=== PATIENT | male | born 1945 | race Caucasian/White ===

== ENCOUNTER 2022-11-25 06:56 | Inpatient (IN) | payer OTHER ==
[~2022-11-25] VITALS: Ht 172.7 cm; Wt 137.0 kg
[2022-11-25 07:45] LABS: BASOPHILS ABSOLUTE AUTO 0.08 K/mm3 (0.00-0.23); BASOPHILS PERCENT AUTO 1 % (0-2); EOSINOPHILS ABSOLUTE AUTO 0.35 K/mm3 (0.00-0.68); EOSINOPHILS PERCENT AUTO 5 % (0-6); Hemoglobin 11.4 g/dL (13.5-17.5); IMMATURE GRAN ABSOLUTE AUTO 0.06 K/mm3 (0.00-0.10); IMMATURE GRAN PERCENT AUTO 1 % (0-1); LYMPHOCYTES ABSOLUTE AUTO 2.35 K/mm3 (0.84-5.20); LYMPHOCYTES PERCENT AUTO 31 % (21-46); MONOCYTES ABSOLUTE AUTO 0.66 K/mm3 (0.16-1.47); MONOCYTES PERCENT AUTO 9 % (4-13); Mean Corpuscular HGB 26.8 pg (26.0-34.0); Mean Corpuscular HGB Conc 31.7 g/dL (31.5-36.5); Mean Corpuscular Volume 85 fL (80-100); Mean Platelet Volume 9.6 fL (9.1-12.4); NEUTROPHILS PERCENT AUTO 53 % (41-73); Platelet Count 240 K/mm3 (150-400); RDW Coefficient Variation 14.5 % (11.7-14.2); RDW Standard Deviation 44.4 fL (35.1-46.3); Red Blood Cell Count 4.25 M/mm3 (4.30-5.90)
[2022-11-25] MEDS ORDERED: ROPI1 PO (07:58)
[2022-11-25] MEDS ORDERED: DULO30 PO (07:58)
[2022-11-25] MEDS ORDERED: GABA400 PO (07:59)
[2022-11-25 08:00] LABS: Albumin, Blood 3.6 g/dL (3.4-5.0); Bilirubin, Total 0.4 mg/dL (0.1-1.0); Bun/Creatinine Ratio 18.9 (12.0-20.0); Calcium, Blood 8.8 mg/dL (8.5-10.1); Creatinine, Blood 1.32 mg/dL (0.60-1.20); Globulin, Blood 3.6 g/dL (2.2-4.0); Potassium, Blood 4.4 mmol/L (3.5-5.5); Total Protein, Blood 7.2 g/dL (6.4-8.2)
[2022-11-25] MEDS ORDERED: LEVSOD100 PO (08:00)
[2022-11-25] MEDS ORDERED: AMPDEX30CR PO (08:00)
[2022-11-25] MEDS ORDERED: ALBU90OI INH (08:01)
[2022-11-25] MEDS ORDERED: HYDHCL25 PO (08:01)
[2022-11-25] MEDS ORDERED: OLAN5 PO (08:02)
[2022-11-25] MEDS ORDERED: TRAZ50 PO (08:02)
[2022-11-25 08:20] LABS: Thyroid Stimulating Hormone 48.7 uIU/mL (0.360-4.800); Triiodothyronine, Free 0.99 pg/mL (2.18-3.98)
--- NOTE | 2022-11-25 15:21 | NUR ---
ASSUMPTION OF CARE PT ARRIVED TO U 15 @ 1244 FROM THE ED. PT A/O X4. HE WAS ABLE TO TRANSFER FROM [facility] TO OUR BED W/O DIFFICULTY. ORTHOSTATIC VITAL SIGNS WERE PERFORMED AND THEY WERE POSITIVE. PT DENIED ANY DIZZINESS, BUT BLOOD PRESSURE DID DROP AND NUMBERS ARE DOCUMENTED. PT HR IN THE 40'S WHILE SITTING IN BED WITH OCCASIONAL DIP DOWN INTO THE 30'S. PT STATES HIS RESTING HR IS TYPICALLY IN THE 60'S. PT REPORTS OFTEN FEELING DIZZY IN THE MORNING WHEN HE FIRST WAKES UP. PT DENIES ANGINA, CHEST PRESSURE, OR SOB. RESPIRATIONS ARE EVEN AND UNLABORED. THE DENTAL HYGIENIST SAW THE PT SHORTLY AFTER ARRIVAL AND STATES HE DOES HAVE A LIKELY TOOTH INFECTION FROM A RECENT DENTAL IMPLANT. DR DIAS NOTIFIED. PT VERBALIZED THE WANT FOR A DNR TO BE OFFICIAL. PALLIATIVE CARE CONSULTED TO DISCUSS FORMS WITH PT. DNR ORDER IS IN PLACE. PT IS PLEASANT AND COOPERATIVE, WITH FLAT AFFECT. A/O X4.
--- NOTE | 2022-11-25 18:17 | NUR ---
SHIFT SUMMARY NO ACUTE CHANGES. SEE PREVIOUS NOTE. PT A/O X4. PLEASANT AND COOPERATIVE. REQUESTED TO STAND AT BEDSIDE AND TOLERATING WELL. PT BIPAP SET UP BY RT AND PT WAS ABLE TO USE WHILE NAPPING. SPO2 >92%. RESPIRATIONS WERE EVEN AND UNLABORED. PT HR NOW IN THE 40-60'S. WILL CONTINUE TO CARE FOR PT AND REPORT TO ONCOMING RN.
[2022-11-26 04:47] LABS: BASOPHILS ABSOLUTE AUTO 0.08 K/mm3 (0.00-0.23); BASOPHILS PERCENT AUTO 1 % (0-2); EOSINOPHILS ABSOLUTE AUTO 0.31 K/mm3 (0.00-0.68); EOSINOPHILS PERCENT AUTO 5 % (0-6); Hematocrit 35.4 % (37.0-53.0); Hemoglobin 11.6 g/dL (13.5-17.5); IMMATURE GRAN ABSOLUTE AUTO 0.05 K/mm3 (0.00-0.10); IMMATURE GRAN PERCENT AUTO 1 % (0-1); LYMPHOCYTES ABSOLUTE AUTO 2.14 K/mm3 (0.84-5.20); LYMPHOCYTES PERCENT AUTO 32 % (21-46); MONOCYTES ABSOLUTE AUTO 0.52 K/mm3 (0.16-1.47); MONOCYTES PERCENT AUTO 8 % (4-13); Mean Corpuscular HGB 27.5 pg (26.0-34.0); Mean Corpuscular HGB Conc 32.8 g/dL (31.5-36.5); Mean Corpuscular Volume 84 fL (80-100); Mean Platelet Volume 9.8 fL (9.1-12.4); NEUTROPHILS ABSOLUTE AUTO 3.56 K/mm3 (1.96-9.15); NEUTROPHILS PERCENT AUTO 53 % (41-73); Platelet Count 223 K/mm3 (150-400); RDW Coefficient Variation 14.6 % (11.7-14.2); RDW Standard Deviation 44.2 fL (35.1-46.3); Red Blood Cell Count 4.22 M/mm3 (4.30-5.90); White Blood Cell Count 6.66 K/mm3 (4.00-11.30)
[2022-11-26 05:10] LABS: Albumin, Blood 3.5 g/dL (3.4-5.0); Bilirubin, Total 0.5 mg/dL (0.1-1.0); Bun/Creatinine Ratio 16.9 (12.0-20.0); Calcium, Blood 8.3 mg/dL (8.5-10.1); Creatinine, Blood 1.24 mg/dL (0.60-1.20); Globulin, Blood 3.4 g/dL (2.2-4.0); Potassium, Blood 4.2 mmol/L (3.5-5.5); Total Protein, Blood 6.9 g/dL (6.4-8.2)
--- NOTE | 2022-11-26 06:22 | NUR ---
SHIFT SUMMARY A/OX4, FLAT/WITHDRAWN. DENIES CHEST PAIN/PRESSURE. TELE SB 40-60, PT ASYMPTOMATIC. SPO2 >92% ON RA. IND TO BATHROOM, CALLS APPROPRIATELY. BELONGINGS PLACED IN PT CLOSET, ITEMIZED LIST IN CHART. VSS, NO ACUTE CHANGES AT THIS TIME. BED IN LOWEST POSITION WITH CALL LIGHT IN REACH. WILL CONTINUE TO MONITOR AND REPORT TO ONCOMING RN.
--- NOTE | 2022-11-26 10:18 | NUR ---
CARE ASSUMPTION This RN assumed care at 0700. vital signs stable. spo2 >95% on room air. tele sinusbrady 40-60s. Patient is alert and oriented x4. patient reports no pain. patient reports no shortness of breath. patient reports no chest pain/pressure. see shift assessmnet for further detials. Patient uses call light appropriately. patient is indepdent but this RN educated the patient to call before getting up due to heart rate and having perviously been symptomatic with the heart rate. This AM the patient was not symptomatic when standing up or sitting at bedside. MD Velasquez and medical student in to see patient this AM. This RN called MD Velasquez to notify him of the patient NH interval increasing per tele, and no new orders placed at this time. Plan of care is up to date and call light within reach and bed in lowest position.
--- NOTE | 2022-11-26 11:30 | NUR ---
REFUSAL Patient refused to take lunch time humalog, and this RN provided education.
--- NOTE | 2022-11-26 17:56 | NUR ---
SHIFT SUMMARY Patient neuro remains intact. patient is indepdent in the room. no acute changes. patient uses call light appropriately. plan of care up to date. call light within reach and bed in lowest position.
--- NOTE | 2022-11-27 05:16 | NUR ---
Assumed care of pt at 1900. A/Ox4, cooperative with care, calls appropriately. Maintains over 92% on RA while awake. While asleep patient had nasal mask on and would frequently briefly desat into 70's on 12/05 21%, attempted full face mask but tube whistling made it unable to be tolerated. LS clear on top and dim at bases. 1+ pitting edema BLE. Chronic appearing reddened dry skin on R calf. Will report to elizabeth OTT.
--- NOTE | 2022-11-27 05:26 | NUR ---
Patient's HR dropped to 29 then remained more consistently in the 30's for a few minutes after. Checked on patient and patient was asleep with bipap mask in place.
[2022-11-27 05:36] LABS: Bun/Creatinine Ratio 14.8 (12.0-20.0); Calcium, Blood 8.7 mg/dL (8.5-10.1); Creatinine, Blood 1.35 mg/dL (0.60-1.20); Free Thyroxine 0.54 ng/dL (0.70-1.60); Potassium, Blood 4.1 mmol/L (3.5-5.5); Thyroid Stimulating Hormone 57.2 uIU/mL (0.360-4.800); Triiodothyronine, Free 1.13 pg/mL (2.18-3.98)
--- NOTE | 2022-11-27 09:04 | NUR ---
CARE ASSUMPTION THis RN assumed care at 0700. vital signs stable. tele sb 1st degree bbb 50-60s. patient is alert and oriented x4. patient reports no pain. patient reports no shortness of breath. patient reports no chest pain/pressure. see shift assessment for further detials. MD Bourne and the team into see patient this AM. discussed possile discharge today. Patient educated on morning medications and the improtance of taking medications daily, focsed on the synthroid extra. Patient verbalized understanding and taught this RN back the importance of each medication. Patient refused some morning meds, levonox and cymbalta, see emar. This RN educated the patient on what these medications are for, and patient verbalized understanding. Plan of care is up to date. call light within reach.
[2022-11-27] MEDS ORDERED: AMOX875 PO (12:16)
--- NOTE | 2022-11-27 16:39 | NUR ---
SHIFT SUMMARY Patient neuro remains unchanged. neuro intact. vital signs remain stable. patient has had no pain, chest pain/pressure, or shortness of breath during this RNs shift. Patient was to discharge today, but due to transportation issues was unable to leave. Plan is to leave tomorrow morning. Discharge paperwork in the patient charts in the [facility]. Patient has been indepdent in the room. Patient uses call light apporpriately. No acute changes this shift.
--- NOTE | 2022-11-27 18:12 | NUR ---
PT ARRIVED TO THE MEDICAL FLOOR FROM THE PCU VIA WHEELCHAIR. PT UP IND TO THE BED. PT WAS ORIENTED TO THE ROOM LAYOUT AND CALL SYSTEM. REPORT WAS TAKEN FROM KIMBERLYN OTT. CALL LIGHT IN REACH, WILL CONTINUE TO MONITOR AND ASSESS FOR CHANGES
--- NOTE | 2022-11-28 04:40 | NUR ---
ALON SLEPT WELL OVERNIGHT. HE WAS AWAKE UNTIL APPROX 0030. HE HAD NO COMPLAINTS OF CHEST PAIN, PRESSURE OR SHORTNESS OF BREATH. JUST AFTER HE WENT TO BED, HE HE HAD A 3.02 SEC PAUSE BEFORE RETURNING TO THE 38-42 RANGE. THEN AROUND 0400, HE BEGAN HAVING MORE FREQUENT SHORTER PAUSES WITH MORE FREQUENT PVC'S AND 3 SEC PAUSES. PATIENT SLEEPS RIGHT THROUGH THIS. HIS AVERAGE RATE OVERNIGHT HAS BEEN THE HIGH 50'S TO LOW 60'S. CALL PLACED TO HOSPITALIST TO INFORM
[2022-11-28 06:57] LABS: Bun/Creatinine Ratio 15.4 (12.0-20.0); Calcium, Blood 9.3 mg/dL (8.5-10.1); Creatinine, Blood 1.43 mg/dL (0.60-1.20); Potassium, Blood 3.8 mmol/L (3.5-5.5)
--- NOTE | 2022-11-28 16:44 | NUR ---
1050- PT DISCHARGED WITH DC INSTRUCTIONS. WHEELCHAIR OUTSIDE FOR TX OVER TO [facility] IN ORDER THAT HE CAN BE TRANSPORTED TO [facility]. UNDERSTANDS FOLLOWUPS AND MED RECOMMENDATIONS
--- NOTE | 2022-11-28 16:45 | NUR ---
1010- SPOKE WITH DR UP, CONFORMED THAT PHYSICIANS FULLY AWAIR OF THE PAUSES IN HEART RHYTHM THROUGH THE NIGHT AND THAT PT IS SAFE FOR DISCHARGE. PT ADMITS THAT HE IS USED TO WEARING HIS CPAP AND CANT WEAR THE ONE IN THE HOSPITAL AND THAT THIS MAY HAVE CONTRIBUTED TO HIS PAUSES IN HEART RATE.
== END 2022-11-28 10:50 | disposition home or self-care (01) | DRG 644 ==
LOC: ER 06:56 → MEDS 09:43 → PCU 09:43 → MEDS 11-27 17:29
PROVIDERS: Family Medicine; Student in an Organized Health Care Education/Training Program; ADMIT Hospitalist
PROC: 5A09357 Assistance with Respiratory Ventilation, Less than 24 Consecutive Hours, Continuous Positive Airway Pressure (ICD-10-PCS; principal; 2022-11-25)
DX: E03.9 Hypothyroidism, unspecified (principal); E87.1 Hypo-osmolality and hyponatremia; N17.9 Acute kidney failure, unspecified; Z68.42 Body mass index [BMI] 45.0-49.9, adult; E11.9 Type 2 diabetes mellitus without complications; E66.9 Obesity, unspecified; Z66 Do not resuscitate; D64.9 Anemia, unspecified; J44.9 Chronic obstructive pulmonary disease, unspecified; G47.33 Obstructive sleep apnea (adult) (pediatric); I50.9 Heart failure, unspecified; T38.1X6A Underdosing of thyroid hormones and substitutes, initial encounter; G25.81 Restless legs syndrome; I87.8 Other specified disorders of veins; I44.0 Atrioventricular block, first degree; K04.7 Periapical abscess without sinus; F44.89 Other dissociative and conversion disorders; I45.10 Unspecified right bundle-branch block; F32.9 Major depressive disorder, single episode, unspecified; Z79.890 Hormone replacement therapy; Z87.891 Personal history of nicotine dependence; Z79.51 Long term (current) use of inhaled steroids; Z79.899 Other long term (current) drug therapy; Z91.148 Patient's other noncompliance with medication regimen for other reason
CPT/HCPCS: 36415; 80048; 80053; 82947; 83036; 83880; 84436; 84439; 84443; 84481; 85025; 93005; 93010; 94660; 94760; 94762; 96361; 96365; 96366; 99285-25; A9270; J3475; J7030

== ENCOUNTER 2025-01-04 07:52 | Day surgery (SDC) | payer OTHER ==
[~2025-01-04] VITALS: Ht 172.7 cm; Wt 137.8 kg
[2025-01-04 10:42] VITALS: BP 180/118
== END 2025-01-04 10:42 | disposition home or self-care (01) ==
LOC: ORSCSDS 07:52
PROC: 08RK3JZ Replacement of Left Lens with Synthetic Substitute, Percutaneous Approach (ICD-10-PCS; principal; 2025-01-04)
DX: H25.813 Combined forms of age-related cataract, bilateral (principal); H50.111 Monocular exotropia, right eye; H53.001 Unspecified amblyopia, right eye; H47.22 Hereditary optic atrophy; Z87.891 Personal history of nicotine dependence; E11.36 Type 2 diabetes mellitus with diabetic cataract; G47.33 Obstructive sleep apnea (adult) (pediatric); J44.9 Chronic obstructive pulmonary disease, unspecified; Z79.85 Long-term (current) use of injectable non-insulin antidiabetic drugs; Z79.899 Other long term (current) drug therapy

== ENCOUNTER 2025-01-11 07:49 | Day surgery (SDC) | payer OTHER ==
[~2025-01-11] VITALS: Ht 172.7 cm; Wt 139.7 kg
[~2025-01-11 07:49] MED LIST: ALBU90OI INH; AMOX875 PO; AMPDEX30CR; AMPDEX30CR PO; Balanced Salt Epinephrine Irrigation Solution 500 mL IR SCH; DULO30 PO; GABA400 PO; HYDHCL25 PO; LEVSOD100 PO; Lidocaine HCl/Pf 1% 5 ML VIAL XX SCH; Moxifloxacin HCL 0.5 MG/0.1 ML 0.4MLSYR RIGHTEYE SCH; NS 500 ML IV ONE; OLAN5 PO; OZEMPIC1 MG/0.72 SQ; PHENYLEPHRINE\\TROPICAMIDE\\TETRACAINE OPHTHALMIC DILATING SOLN RIGHTEYE PRN; Povidone-Iodine 450 DROP/30 ML Solution ONE; Povidone-Iodine 450 DROP/30 ML Solution RIGHTEYE SCH; ROPI1 PO; TRAZ50 PO; Tambocor100 MG PO; Tetracaine HCl/Pf 0.5% Opth Soln 4 ml ONE
[2025-01-11] MEDS ORDERED: FentaNYL Citrate 50 MCG/ML 2 ML Injection ONE (08:20)
[2025-01-11] MEDS ORDERED: propofoL 20 ML IV ONE (08:20)
[2025-01-11] MEDS ORDERED: Midazolam HCl 1MG / ML 2ML Vial ONE (08:20)
[2025-01-11] MEDS ORDERED: NS 500 ML IV ONE (08:48)
[2025-01-11 09:35] VITALS: BP 148/82
[2025-01-11] MEDS ORDERED: Tropicamide 1% Opth Soln 15 ML BTL ONE (12:08)
== END 2025-01-11 09:35 | disposition home or self-care (01) ==
LOC: ORSCSDS 07:49
PROVIDERS: Student in an Organized Health Care Education/Training Program
PROC: 08RJ3JZ Replacement of Right Lens with Synthetic Substitute, Percutaneous Approach (ICD-10-PCS; principal; 2025-01-11 09:30)
DX: H25.813 Combined forms of age-related cataract, bilateral (principal); Z96.1 Presence of intraocular lens; I10 Essential (primary) hypertension; G47.33 Obstructive sleep apnea (adult) (pediatric); E03.9 Hypothyroidism, unspecified; Z79.899 Other long term (current) drug therapy
CPT/HCPCS: 82947; J2250; J2704; J3010; J7040; V2632